=== PATIENT | female | born 1960 | race Caucasian/White ===

== ENCOUNTER → 2017-02-16 | Outpatient (CLI) | payer OTHER ==
--- NOTE | 2017-02-16 15:08 | REPMRS ---
Patient History The patient states she had a clinical breast exam in 02/2017. No known family history of cancer. Digital Woman Screen Mammo: February 16, 2017 - Exam #: [id number] Bilateral CC and MLO view(s) were taken. Technologist: Katy Duarte, Technologist Prior study comparison: December 17, 2015, digital woman screen mammo performed at [facility] to [facility]. November 07, 2014, digital woman screen mammo performed at [facility] to [facility]. FINDINGS: There are scattered fibroglandular densities. There has been no change in the appearance of the mammogram from the prior studies. There is a mild amount of residual fibroglandular tissue which is fairly symmetric. There is no interval development of dominant mass, architectural distortion, or clustered microcalcification suggestive of malignancy. ASSESSMENT: BI-RADS/ACR category 1 mammogram. Negative. Recommendation Routine screening mammogram in 1 year (for women over age 40). This mammogram was interpreted with the aid of an FDA-approved computer-aided dectection system. Electronically Signed By: Trey Hinson MD 02/16/17 [id number]
== END ==
LOC: M WHC 14:01
PROVIDERS: ATTEND Nurse Practitioner Women's Health
DX: Z12.31 Encounter for screening mammogram for malignant neoplasm of breast (principal)

== ENCOUNTER → 2018-05-03 | Outpatient (CLI) | payer OTHER ==
--- NOTE | 2018-05-03 11:53 | REP ---
BILATERAL SCREENING MAMMOGRAM WITH 3D TOMOSYNTHESIS: Bilateral screening mammogram is performed with 3D tomosynthesis. Comparison is made with multiple prior exams, most recent of which is 02/16/2017. Tyrer-Cuzick lifetime risk of breast cancer 7.0%. There is mild scattered fibroglandular tissue bilaterally. There appears to be a 5 mm nodule in the lower outer left breast near the nipple in the anterior third of the breast. It appears fairly well circumscribed on tomographic images. No other mass or clustered microcalcifications are seen. IMPRESSION: BIRADS 0: BI-RADS/ACR category 0 mammogram, Incomplete. Need additional imaging evaluation and/or prior mammograms for comparison. 5 mm relatively well-circumscribed nodule lower outer left breast, anterior third. Recommend spot compression views and ultrasound to further evaluate. ACR 0, incomplete. This mammogram was interpreted with the aid of an FDA-approved computer-aided detection system. A. Negative x-ray reports should not delay biopsy if a dominant or clinically suspicious mass is present. B. Four to eight percent of cancers are not identified by x-ray. C. Adenosis and dense breasts may obscure an underlying neoplasm. The patient states she/he had a clinical breast exam in April,. The patient letter being requested is M0
== END ==
LOC: M WHC 09:16
PROVIDERS: ATTEND Nurse Practitioner Women's Health
DX: Z12.31 Encounter for screening mammogram for malignant neoplasm of breast (principal)

== ENCOUNTER → 2018-05-08 | Outpatient (CLI) | payer OTHER ==
--- NOTE | 2018-05-08 19:15 | REP ---
Digital diagnostic unilateral left breast mammography with CAD and focused left breast sonography: History: Screening mammography May 03, 2018 was incomplete, BIRADS zero, because of a 5 mm well-circumscribed nodular density in the left breast. Diagnostic imaging was recommended. Mammographic findings: Magnified focal spot compression CC, true MLO, and MLO views confirm the presence of a well-circumscribed subareolar nodular opacity 5 mm in diameter in the inferior and slightly lateral subareolar zone. No other mammographic opacity. No spiculation or microcalcification seen. Sonographic findings: Left breast scanned from 3 o'clock to 5 o'clock. At 4 o'clock there is a 0.4 x 0.3 x 0.4 cm very hypoechoic rounded area located 2.6 cm from the nipple. This has well-circumscribed margins and a well defined back wall but it does not definitely demonstrate enhanced through transmission and does not meet criteria of a simple cyst. It is felt to correspond to the mammographic opacity. Impression: BIRADS category four suspicious left breast imaging. 5 mm nodule is seen in the subareolar zone mammographically. This is felt to correspond with a 4.4 mm hypoechoic area sonographically. Ultrasound-guided needle biopsy is recommended with marker clip placement and post marker clip placement mammography. BIRADS 4: BI-RADS/ACR category 4 mammogram. Suspicious Abnormality - biopsy should be considered. This mammogram was interpreted with the aid of an FDA-approved computer-aided detection system. The patient states she had a clinical breast exam in April 23, 2018 The patient letter being requested is m4. Electronically Signed by Pavel Lara MD 05/09/2018 08:09 A
== END ==
LOC: M RAD 13:36
PROVIDERS: ATTEND Nurse Practitioner Women's Health
DX: R92.8 Other abnormal and inconclusive findings on diagnostic imaging of breast (principal)

== ENCOUNTER → 2022-01-25 | Outpatient (REF) | payer OTHER, BC | LOC: M LAB REF 16:55 | PROVIDERS: ATTEND Nurse Practitioner Adult Health | DX: Z00.00 Encounter for general adult medical examination without abnormal findings (principal); J30.9 Allergic rhinitis, unspecified ==